=== PATIENT | female | born 1995 | race Caucasian/White ===

== ENCOUNTER 2018-07-01 20:15 | Emergency (ER) | payer MEDICAID ==
[2018-07-01 20:15] VITALS: BMI 24.1
[2018-07-01 20:58] VITALS: TEMP 98.7
[2018-07-01] MEDS: Sodium Chloride 0.9% 1,000 ML IV ONE (22:00)
--- NOTE | 2018-07-01 22:03 | C.PDOC ---
History Of Present Illness 22 year old female presents to the ED for evaluation of blood streaks in her vomit earlier today and diarrhea. Patient reports having subsequent vomiting but with no blood. Patient is also c/o epigastric and lower abdominal pain. Patient denies fever, chills, dysuria, hematuria. Chief Complaint (Nursing): Abdominal Pain History Per: Patient History/Exam Limitations: no limitations Onset/Duration Of Symptoms: Days Current Symptoms Are (Timing): Still Present Location Of Pain/Discomfort: RLQ, Epigastric, LLQ Radiation Of Pain To:: None Quality Of Discomfort: "Pain" Associated Symptoms: Vomiting, Diarrhea Exacerbating Factors: None Alleviating Factors: None Recent travel outside of the [place]: No Additional History Per: Patient Abnormal Vaginal Bleeding: No Past Medical History Reviewed: Historical Data, Nursing Documentation, Vital Signs Vital Signs: Last Vital Signs Temp 98.7 F 07/01/18 20:51 Pulse 97 H 07/01/18 20:51 Resp 20 07/01/18 20:51 BP 115/77 07/01/18 20:51 Pulse Ox 100 07/01/18 20:51 - Medical History PMH: No Chronic Diseases Surgical History: No Surg Hx - [facility] Procedures TONSILLECTOMY (02/23/13) Family History: States: Unknown Family Hx - Social History Hx Alcohol Use: No Hx Substance Use: No - Immunization History Hx Influenza Vaccination: No Review Of Systems Constitutional: Negative for: Fever, Chills Cardiovascular: Negative for: Chest Pain Respiratory: Negative for: Shortness of Breath Gastrointestinal: Positive for: Vomiting, Abdominal Pain, Diarrhea Genitourinary: Negative for: Dysuria, Hematuria Skin: Negative for: Rash Neurological: Negative for: Weakness, Numbness Physical Exam - Physical Exam Appears: Non-toxic, No Acute Distress Skin: Normal Color, Warm, Dry Head: Atraumatic, Normacephalic Eye(s): bilateral: Normal Inspection Oral Mucosa: Moist Neck: Normal ROM, Supple Chest: Symmetrical Cardiovascular: Rhythm Regular Respiratory: Normal Breath Sounds, No Rales, No Rhonchi, No Wheezing Gastrointestinal/Abdominal: Soft, Tenderness (epigastric and bilaterak lower quadrants), No Guarding, No Rebound Extremity: Normal ROM, No Tenderness, No Swelling Neurological/Psych: Oriented x3, Normal Speech, Normal Cognition Gait: Steady ED Course And Treatment - Laboratory Results Result Diagrams: 07/01/18 22:14 10/03/18 22:14 O2 Sat by Pulse Oximetry: 100 (ON RA) Pulse Ox Interpretation: Normal - CT Scan/US Pelvic US Other Rad Studies (CT/US): Read By Radiologist, Radiology Report Reviewed CT/US Interpretation: TRANSABDOMINAL PELVIC ULTRASOUND. HISTORY: LMP 04/06/18.. ESTIMATED DATE OF DELIVERY BY LMP 01/11/19. ESTIMATED GESTATIONAL AGE BY HISTORY 12 WEEKS 2 DAYS. . Patient complained of pain no bleeding no clots. No beta hCG level. The uterus measures 1.2 x 8.8 x 9.8 cm and is anteverted. There are no uterine masses. The cervix measures 3.6 cm.crown-rump length is equivalent to gestation of 12 weeks 4 days. Doppler M-mode evaluating the heart rate of 150 bpm. There is nno fluid in the cul-de-sac. Both ovaries are normal size. There are normal Doppler flow signals from each ovary. Impression: Findings consistent with live intrauterine gestation of 12 weeks 4 days. Recommend follow-up exam. . Electronically signed on Jul 01, 2018 11:35:54 PM EDT by: Tre Centeno M.D., Certified by [facility] Medical Decision Making Medical Decision Making: Plan: * Labs * Pelvic US * UA * IV fluids Disposition Counseled Patient/Family Regarding: Diagnosis - Disposition Referrals: [facility] [Outside] Disposition: HOME/ ROUTINE Disposition Time: 23:56 Condition: STABLE Prescriptions: Famotidine [Pepcid] 20 mg PO BID #14 tab Ondansetron ODT [Zofran ODT] 1 odt PO BID PRN #6 odt PRN Reason: Nausea/Vomiting Instructions: Gastritis, How to Adapt to Physical Changes During , Morning Sickness (DC) Forms: [facility] (Persian) - POA Present On Arrival: None - Clinical Impression Clinical Impression: , Gastritis, Hyperemesis arising during - Scribe Statement The provider has reviewed the documentation as recorded by the Scribe Isreal Qureshi All medical record entries made by the Scribe were at my direction and personally dictated by me. I have reviewed the chart and agree that the record accurately reflects my personal performance of the history, physical exam, medical decision making, and the department course for this patient. I have also personally directed, reviewed, and agree with the discharge instructions and disposition.
[2018-07-01 22:22] LABS: BASO % 0.1 % (0.0-2.0); EOS # 0.3 K/uL (0.0-0.7); EOS % 4.4 % (0.0-4.0); HEMOGLOBIN 13.1 g/dL (11.0-16.0); LYMPH # 1.1 K/uL (1.0-4.3); LYMPH % 18.5 % (20.0-40.0); MEAN CELL VOLUME 84.9 fL (81.0-99.0); MEAN CORPUSCULAR HEMOGLOBIN 29.6 pg (27.0-31.0); MEAN CORPUSCULAR HGB CONC 34.8 g/dL (33.0-37.0); MEAN PLATELET VOLUME 8.9 fL (7.2-11.7); MONO # 0.5 K/uL (0.0-0.8); MONO % 8.9 % (0.0-10.0); NEUT # 4.2 K/uL (1.8-7.0); NEUT % 68.1 % (50.0-75.0); NRBC % 0.1 % (0.0-2.0); RBC 4.42 Mil/uL (3.80-5.20); RED CELL DISTRIBUTION WIDTH 13.4 % (11.5-14.5); WHITE BLOOD COUNT 6.1 K/uL (4.8-10.8)
[2018-07-01 22:24] LABS: HCG,QUALITATIVE URINE POSITIVE (NEGATIVE)
[2018-07-01 22:37] LABS: SQUAMOUS EPITHIAL 3 /hpf (0-5); URINE BACTERIA OCC (<OCC); URINE BILIRUBIN NEGATIVE (NEGATIVE); URINE BLOOD NEGATIVE (NEGATIVE); URINE CLARITY Clear (Clear); URINE COLOR Amber (YELLOW); URINE GLUCOSE (UA) NORMAL (Normal); URINE LEUKOCYTE ESTERASE TRACE Leu/uL (Negative); URINE PROTEIN NEGATIVE (NEGATIVE)
[2018-07-01 22:38] LABS: ALB/GLOB RATIO 1.4 (1.0-2.1); ALBUMIN 4.5 g/dL (3.5-5.0); ALT/SGPT 50 U/L (9-52); AST/SGOT 27 U/L (14-36); BLOOD UREA NITROGEN 8 mg/dL (7-17); CALCIUM 9.6 mg/dl (8.6-10.4); GFR NON-AFRICAN AMERICAN > 60; LIPASE 43 U/L (23-300)
[2018-07-02 00:16] VITALS: BP 110/70; PULSE 80; RESP 14; O2SAT 98
--- NOTE | 2018-07-02 12:59 | US ---
Date of service: 07/01/2018 PROCEDURE: Limited ultrasound HISTORY: 10 weeks preg COMPARISON: None TECHNIQUE: Standard protocol for this study/examination. FINDINGS: LMP: 04/06/2018 Prior examinations from the current : None TECHNIQUE: Real-time 2D imaging, duplex and color Doppler. FINDINGS: Cardiac activity: Present Rate: 150 BPM Measurements: Burchard rump length: 6.24 cm Gestational age based on CRL 12 weeks 4 days Gestational age derived from LMP: 12 weeks 2 days PRASANTH based on LMP: 01/11/2019 PRASANTH based on biometry: 01/09/2019 Gestational concordance documented Yolk sac not identified Cervix: No Cervical abnormalities: Negative examination for cervical dilatation or effacement. Closed cervix measuring 3.59 cm Subchorionic hemorrhage: None UTERUS: 8.8 x 9.9 x 11.2 cm. ADNEXA: Right: 2.1 x 3 x 4 cm. Normal Doppler arterial waveform documented. Left: 1.6 x 3.1 x 3.2 cm. Normal Doppler arterial waveform documented Fluid in the cul-de-sac: IMPRESSION: Live intrauterine gestation. Gestational concordance documented.
== END 2018-07-02 00:18 | disposition home or self-care (01) ==
LOC: C.ER 20:15
DX: O99.611 Diseases of the digestive system complicating pregnancy, first trimester (principal); K29.70 Gastritis, unspecified, without bleeding; O21.0 Mild hyperemesis gravidarum; Z3A.12 12 weeks gestation of pregnancy
CPT/HCPCS: 76801; 80053; 81001; 83690; 84702; 84703; 85025; 99284; J7030